=== PATIENT | male | born 1980 | race Caucasian/White ===

== ENCOUNTER 2018-08-12 17:00 | Emergency (ER) | payer OTHER ==
[2018-08-12] MEDS ORDERED: ONDANSETRON 4 MG TAB.RAPDIS PO ONE (17:18)
[2018-08-12] MEDS ORDERED: ACETAMINOPHEN 325 MG TABLET PO ONE (17:18)
[2018-08-12] MEDS ORDERED: HYDROCODONE/ACETAMINOPHEN 5-325 MG TABLET PO ONE (17:22)
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
[2018-08-12] MEDS ORDERED: HYDROCODONE/ACETAMINOPHEN 5-325 MG (6 TAB/ER DISP) PO PRN (18:23)
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
[2018-08-12 18:48] VITALS: BP 134/96
== END 2018-08-12 18:35 | disposition home or self-care (01) ==
LOC: ER 17:00
DX: R51 Headache (principal); M54.2 Cervicalgia; M54.6 Pain in thoracic spine; M25.532 Pain in left wrist; V63.5XXA Driver of heavy transport vehicle injured in collision with car, pick-up truck or van in traffic accident, initial encounter; R11.2 Nausea with vomiting, unspecified
CPT/HCPCS: 99284; 72070; 73110; 70450; 72125; L0120; S0119

== ENCOUNTER 2018-08-21 15:30 | Emergency (ER) | payer OTHER ==
[2018-08-21] MEDS ORDERED: KETOROLAC TROMETHAMINE 60 MG/2 ML SDV IM ONE (16:51)
[2018-08-21] MEDS ORDERED: DEXAMETHASONE SOD PHOS INJ 10 MG/1 ML VIAL IM ONE (16:51)
[2018-08-21] MEDS ORDERED: LIDOCAINE 5% (700 MG) TRANSDERMAL ADH..PATCH TP ONE (16:51)
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
[2018-08-21 17:30] VITALS: BP 114/76
== END 2018-08-21 17:30 | disposition home or self-care (01) ==
LOC: ER 15:30
DX: M54.9 Dorsalgia, unspecified (principal); M54.2 Cervicalgia; V87.7XXD Person injured in collision between other specified motor vehicles (traffic), subsequent encounter; Z96.642 Presence of left artificial hip joint
CPT/HCPCS: 99283; 96372; J1885; J1100

== ENCOUNTER 2019-11-30 10:31 | Emergency (ER) | payer OTHER ==
[2019-11-30 10:38] VITALS: BP 140/79
[2019-11-30] MEDS ORDERED: HYDROCODONE/ACETAMINOPHEN 5-325 MG TABLET PO ONE (10:47)
[2019-11-30] MEDS ORDERED: CYCLOBENZAPRINE HCL 10 MG TABLET PO ONE (10:47)
[2019-11-30] MEDS ORDERED: KETOROLAC TROMETHAMINE 60 MG/2 ML SDV IM ONE (10:47)
--- NOTE | 2019-11-30 10:51 | ER Document Report ---
HPI - HPI Patient complains to provider of: back pain Time Seen by Provider: 11/30/19 10:40 Pain Level: 3 Notes: 39-year-old male to the emergency department with complaints of mid and lower back pain for over 1 week. He states this started after he lifted a generator at work. It was approximately 50 pounds. He states that he had immediate pain. And has been struggling since then. He did go to [facility] and was seen in their emergency department. Patient states that he did have x-rays at the time of his visit there and they were negative. He was given Robaxin, NSAIDs. He states that this regimen has not helped and he has significant pain still. Denies radiculopathy, bladder bowel incontinence, saddle paresthesia, IV drug abuse, fevers. - ROS Systems Reviewed and Negative: Yes All other systems reviewed and negative - CONSTITUTIONAL Constitutional: DENIES: Fever, Chills - EENT EENT: DENIES: Sore Throat, Ear Pain - NEURO Neurology: DENIES: Headache - CARDIOVASCULAR Cardiovascular: DENIES: Chest pain - RESPIRATORY Respiratory: DENIES: Trouble Breathing, Coughing - GASTROINTESTINAL Gastrointestinal: DENIES: Abdominal Pain, Nausea, Patient vomiting, Diarrhea - URINARY Notes: No bowel or bladder incontinence - MUSCULOSKELETAL Musculoskeletal: REPORTS: Back Pain - see hpi - DERM Skin Color: Normal Skin Problems: None Past Medical History - General Information source: Patient - Social History Smoking Status: Current Every Day Smoker Frequency of alcohol use: Occasional Drug Abuse: Marijuana Family History: Reviewed & Not Pertinent Renal/ Medical History: Denies: Hx Peritoneal Dialysis Past Surgical History: Reports: Hx Orthopedic Surgery - Left hip replacement - Immunizations Immunizations up to date: Yes Hx Diphtheria, Pertussis, Tetanus Vaccination: Yes Vertical Provider Document - CONSTITUTIONAL Agree With Documented VS: Yes Exam Limitations: No Limitations General Appearance: Moderate Distress Notes: moderate pain distress - INFECTION CONTROL TRAVEL OUTSIDE OF THE [place] IN LAST 30 DAYS: No - HEENT HEENT: Atraumatic, Normocephalic, PERRLA - NECK Neck: Normal Inspection, Supple - RESPIRATORY Respiratory: Breath Sounds Normal, No Respiratory Distress. negative: Rales, Rhonchi, Wheezing - CARDIOVASCULAR Cardiovascular: Regular Rate, Regular Rhythm, No Murmur - GI/ABDOMEN Gastrointestinal: Abdomen Soft, Abdomen Non-Tender - BACK Notes: There is no tenderness to palpation to the midline cervical, thoracic, and lumbar spine. There is tenderness to palpation along the paraspinal muscles at the level of the lumbar and thoracic spine with noted significant back spasm. He is tender in these muscles particularly on the right side. Negative straight leg raise bilaterally. - MUSCULOSKELETAL/EXTREMETIES Musculoskeletal/Extremeties: MAEW, FROM, Non-Tender - NEURO Level of Consciousness: Awake, Alert Motor/Sensory: No Motor Deficit, No Sensory Deficit - DERM Integumentary: Warm, Dry Course - Re-evaluation Re-evalutation: 11/30/19 Impression: Lumbar and thoracic strain. Do not think imaging studies are warranted today. Will start on pain meds, muscle relaxants. We will have him follow-up with orthopedist. Patient agrees with the plan. - Vital Signs Vital signs: Temp Pulse Resp BP Pulse Ox 98.6 F 67 20 140/79 H 99 11/30/19 10:36 11/30/19 10:36 11/30/19 10:36 11/30/19 10:36 11/30/19 10:36 Discharge - Discharge Clinical Impression: Lumbar strain Qualifiers: Encounter type: initial encounter Qualified Code(s): S39.012A - Strain of muscle, fascia and tendon of lower back, initial encounter Thoracic myofascial strain Qualifiers: Encounter type: initial encounter Qualified Code(s): S29.019A - Strain of muscle and tendon of unspecified wall of thorax, initial encounter Back pain Qualifiers: Back pain location: low back pain Chronicity: acute Back pain laterality: bilateral Sciatica presence: without sciatica Qualified Code(s): M54.5 - Low back pain Condition: Stable Disposition: HOME, SELF-CARE Instructions: Muscle Strain ([facility]) Additional Instructions: TAKE MEDICINES PRESCRIBED. RETURN IF WORSE. FOLLOW UP WITH THE ORTHOPEDIST THIS UPCOMING WEEK WITHOUT FAIL. APPLY HEAT TO THE BACK THREE TIMES A DAY FOR 20 MINUTES. Prescriptions: Cyclobenzaprine HCl [Flexeril 10 mg Tablet] 10 mg PO TID #21 tablet Methylprednisolone [Medrol Dosepack (4 mg/Tab) 21 Tab/Dosepak] 4 mg PO ASDIR PRN #21 tab.ds.pk PRN Reason: Hydrocodone/Acetaminophen [Pala 5-325 mg Tablet] 1 tab PO Q6H #10 tablet Referrals: ROBIN TRACY JR, [ACTIVE PROVISIONAL STAFF] - Follow up in 3-5 days (for orthopedic follow up)
== END 2019-11-30 10:58 | disposition home or self-care (01) ==
LOC: ER 10:31
DX: S39.012A Strain of muscle, fascia and tendon of lower back, initial encounter (principal); S29.019A Strain of muscle and tendon of unspecified wall of thorax, initial encounter; M54.9 Dorsalgia, unspecified; X50.0XXA Overexertion from strenuous movement or load, initial encounter; Y99.0 Civilian activity done for income or pay; F17.200 Nicotine dependence, unspecified, uncomplicated
CPT/HCPCS: 99284; 96372; J1885

== ENCOUNTER 2019-12-02 16:03 | Emergency (ER) | payer OTHER ==
[2019-12-02 16:17] VITALS: BP 111/69
[2019-12-02] MEDS ORDERED: KETOROLAC TROMETHAMINE 60 MG/2 ML SDV IM ONE (17:03)
--- NOTE | 2019-12-02 17:07 | ER Document Report ---
HPI - HPI Time Seen by Provider: 12/02/19 16:51 Context: Patient is a 39-year-old male who presents emergency department with a chief complaint of back pain. Patient was a few days ago. He was also seen at [facility] and x-rays were obtained. There is no fractures. Patient states that he was lifting a generator at work. He has not followed up with friends compensation in regards to this issue. Denies any numbness or tingling. Denies any loss of bladder or bowel function. Denies any history of IV drug use. - ROS Systems Reviewed and Negative: Yes All other systems reviewed and negative - CONSTITUTIONAL Constitutional: DENIES: Fever - URINARY Urinary: DENIES: Dysuria - MUSCULOSKELETAL Musculoskeletal: REPORTS: Back Pain - right lower. DENIES: Extremity pain - DERM Skin Color: Normal Skin Problems: None Past Medical History - General Information source: Patient - Social History Smoking Status: Current Some Day Smoker Family History: Reviewed & Not Pertinent Renal/ Medical History: Denies: Hx Peritoneal Dialysis Past Surgical History: Reports: Hx Orthopedic Surgery - Left hip replacement - Immunizations Immunizations up to date: Yes Hx Diphtheria, Pertussis, Tetanus Vaccination: Yes Vertical Provider Document - CONSTITUTIONAL Agree With Documented VS: Yes Exam Limitations: No Limitations General Appearance: No Apparent Distress - INFECTION CONTROL TRAVEL OUTSIDE OF THE [place] IN LAST 30 DAYS: No - HEENT HEENT: Atraumatic, Normocephalic, PERRLA - NECK Neck: Normal Inspection - RESPIRATORY Respiratory: No Respiratory Distress - CARDIOVASCULAR Cardiovascular: Regular Rate, Regular Rhythm - MUSCULOSKELETAL/EXTREMETIES Musculoskeletal/Extremeties: FROM, Tender - Right lower back, No Edema - NEURO Level of Consciousness: Awake, Alert, Appropriate Motor/Sensory: No Motor Deficit, No Sensory Deficit - DERM Integumentary: Warm, Dry, No Rash Course - Re-evaluation Re-evalutation: 12/02/19 Differential diagnosis for back pain includes muscle spasm, muscle strain, slipped disc cauda equina syndrome, vertebral fracture, vertebral tumor, epidural abscess, pyelonephritis, or AAA. Based on history and exam, the most likely etiology of the patient's back pain is musculoskeletal. Emergent MRI is not indicated at this time because the patient does not have new weakness, or cauda equina syndrome. Patient does not have bladder or bowel dysfunction. Patient does not have history of IV drug use, therefore, I do not suspect an epidural abscess. Patient does not have recent weight loss or night sweats, and does not have a known history of cancer. We will switch patient medication over to Robaxin. Advised the patient to follow-up with Workmen's Compensation. Advised him to get physical therapy and do back stretches. Follow-up precautions were given. Verbal discharge instructions were given to the patient. They verbalized understanding. They are stable for discharge. - Vital Signs Vital signs: Temp Pulse Resp BP Pulse Ox 98.7 F 92 18 111/69 98 12/02/19 16:15 12/02/19 16:15 12/02/19 16:15 12/02/19 16:15 12/02/19 16:15 Discharge - Discharge Clinical Impression: Back pain Qualifiers: Back pain location: low back pain Chronicity: acute Back pain laterality: right Sciatica presence: without sciatica Qualified Code(s): M54.5 - Low back pain Lumbar strain Qualifiers: Encounter type: initial encounter Qualified Code(s): S39.012A - Strain of muscle, fascia and tendon of lower back, initial encounter Condition: Stable Disposition: HOME, SELF-CARE Instructions: Low Back Pain ([facility]), Stretching Exercises for the Back ([facility]) Additional Instructions: You were seen today in the emergency department for right back pain. Please make sure you follow-up with your Workmen's Compensation and follow-up with the provider that they refer you to for Workmen's Compensation. Stop taking Flexeril. Take Robaxin as needed for pain. Make sure you are stretching your back. Take ibuprofen for pain relief. Prescriptions: Methocarbamol [Robaxin 750 mg Tablet] 750 mg PO ASDIR PRN #40 tablet PRN Reason: Forms: Return to Work Referrals: [facility] [Provider Group] - Follow up in 3-5 days
== END 2019-12-02 17:40 | disposition home or self-care (01) ==
LOC: ER 16:03
DX: S39.012A Strain of muscle, fascia and tendon of lower back, initial encounter (principal); X50.0XXA Overexertion from strenuous movement or load, initial encounter; Y99.0 Civilian activity done for income or pay; F17.200 Nicotine dependence, unspecified, uncomplicated
CPT/HCPCS: 99284; 96372; J1885